=== PATIENT | female | born 1990 | race Caucasian/White ===

== ENCOUNTER 2019-05-18 05:34 | Emergency (ER) | payer SELFPAY ==
--- NOTE | 2019-05-18 05:48 | ED ---
Abdominal Pain/Female - HPI Summary HPI Summary: 29-year-old female with a significant past medical history of a miscarriage in the past presents to emergency department today complaining of having heavy vaginal bleeding which began around midnight last night. Patient also reports having a cramping sensation intermittently which began with spotting yesterday afternoon. She is currently not complaining of any pain and states the vaginal bleeding is dark red. She denies alcohol, smoking, recreational drug use. She denies recent trauma, fever, shortness of breath, lightheadedness, chest pain, rash. Patient does not take any anticoagulants. - History of Current Complaint Chief Complaint: EDOBProblems Stated Complaint: BLEEDING PER PT Hx Obtained From: Patient ?: Yes Onset/Duration: Gradual Onset, Lasting Hours Timing: Constant Severity Initially: Mild Severity Currently: Moderate Pain Intensity: 0 Pain Scale Used: 0-10 Numeric Location: Suprapubic Radiates: No Character: Cramping Associated Signs and Symptoms: Positive: Vaginal Bleeding. Negative: Diaphoresis, Fever, Cough, Chest Pain, Back Pain, Blood in Stool, Urinary Symptoms, Vaginal Discharge, Nausea, Vomiting Simlar Episode/Dx as:: hx of miscarriage Allergies/Adverse Reactions: Allergies Allergy/AdvReac Type Severity Reaction Status Date / Time No Known Allergies Allergy Verified 05/18/19 05:41 PMH/Surg Hx/FS Hx/Imm Hx History: Reports: Other Problems/Disorders - history of miscarriage 2 Infectious Disease History: No Infectious Disease History: Denies: Traveled Outside the [place] in Last 30 Days Review of Systems Constitutional: Negative Eyes: Negative ENT: Negative Cardiovascular: Negative Respiratory: Negative Gastrointestinal: Negative Positive: see HPI Musculoskeletal: Negative Skin: Negative Neurological: Negative Psychological: Normal All Other Systems Reviewed And Are Negative: Yes Physical Exam Triage Information Reviewed: Yes Vital Signs On Initial Exam: Initial Vitals Temp Pulse Resp BP Pulse Ox 98.6 F 88 15 112/77 100 05/18/19 05:38 05/18/19 05:38 05/18/19 05:38 05/18/19 05:38 05/18/19 05:38 Vital Signs Reviewed: Yes Appearance: Positive: Well-Appearing, No Pain Distress, Well-Nourished Skin: Positive: Warm, Skin Color Reflects Adequate Perfusion Eyes: Positive: EOMI, NORA ENT: Positive: Hearing grossly normal Respiratory/Lung Sounds: Positive: Clear to Auscultation, Breath Sounds Present Cardiovascular: Positive: RRR, S1, S2 Abdomen Description: Positive: Soft, Other: - Mild tenderness with palpation of the suprapubic region. No heart sounds could be auscultated with a stethoscope. There is an increase in fundal size consistent with recent . Bowel Sounds: Positive: Present Pelvic Exam: Positive: External Exam Normal, No Cerv. Motion Tender, Active Bleeding, Blood. Negative: Cervicitis, Lesions, Mass, Ulcers Musculoskeletal: Positive: Normal, Strength/ROM Intact Neurological: Positive: Sensory/Motor Intact, Normal Gait, Speech Normal Psychiatric: Positive: Normal AVPU Assessment: Alert Procedures - Sedation Patient Received Moderate/Deep Sedation with Procedure: No Diagnostics - Vital Signs Vital Signs Temp Pulse Resp BP Pulse Ox 05/18/19 05:38 98.6 F 88 15 112/77 100 - Laboratory Result Diagrams: 05/18/19 05:58 05/18/19 05:58 Lab Statement: Any lab studies that have been ordered have been reviewed, and results considered in the medical decision making process. Abdominal Pain Fem Course/Dx - Course Course Of Treatment: Patient was evaluated in the emergency department for possible miscarriage. Patient is 11.5 weeks . The patient was seen and examined. Her vital signs are stable and she is afebrile and hemodynamically stable. Laboratory studies were drawn which showed No evidence of leukocytosis. H&H is stable at 13.7/39.there are no significant electrolyte abnormalities noted. Urinalysis is negative for UTI however there is blood present which is consistent with patient complaint. Type and screen was done which revealed O+ blood type and RhoGAM was deemed unnecessary for this patient. Pelvic exam was done and chaperoned by Horace Daley [facility]. Inspection of the external genitalia showed no lesions however there was blood noted in the perianal area, medial thighs. Speculum exam revealed copious amount of blood in the vaginal canal with possible products of conception. Appeared to be mild cervical dilation. Patient tolerated exam well with no pain. Blood clot was sent to the lab for pathology report as per recommendation from SUBSTITUTE TEACHER, Dr. Hansen. Dr. Hansen was consulted at 0901 and agreed patient symptoms are consistent with A complete . She stated the patient needs a [facility] follow-up in one week. Patient is stable to go home and follow-up as an outpatient. - Diagnoses Differential Diagnosis: Positive: Ectopic , Ovarian Cyst, , Other - Provider Diagnoses: Complete - Provider Notifications Discussed Care Of Patient With: Kate Hansen - patient is stable to follow up as an outpatient with her [employer] in one week. Time Discussed With Above Provider: 09:01 Discharge ED - Sign-Out/Discharge Documenting (check all that apply): Patient Departure - Discharge Plan Condition: Stable Disposition: HOME Patient Education Materials: Miscarriage (ED) Referrals: No Primary Care Phys,NOPCP [Primary Care Provider] - Kate Hansen MD [Medical Doctor] - 7 Days Additional Instructions: You were seen in the emergency department and diagnosed with a complete . You're medically well enough to follow up with your rn clinical coordinator within one week for further evaluation and management of your symptoms. Until then please expect mild vaginal bleeding as this miscarriage resolves. Please return to the emergency department if you develop any new or worsening symptoms including a fever over 101, bleeding more than 1 pad an hour. Please refrain from intercourse and practice pelvic rest and do not insert anything into her vagina including tampons for 4 weeks to allow the cervix to relax. - Billing Disposition and Condition Condition: STABLE Disposition: Home
[2019-05-18 06:08] LABS: ABS Eosinophils 0.2 10^3/ul (0-0.6); ABS Lymphocytes 0.9 10^3/ul (1.0-4.8); ABS Monocytes 0.6 10^3/ul (0-0.8); ABS Neutrophils 8.4 10^3/ul (1.5-7.7); Eosinophil % 1.5 %; Hematocrit 39 % (35-47); Hemoglobin 13.7 g/dL (12.0-16.0); Lymphocyte % 9.3 %; Mean Corpuscular HGB Conc 36 g/dL (31-36); Mean Corpuscular Hemoglobin 30 pg (27-31); Mean Corpuscular Volume 85 fL (80-97); Mean Platelet Volume 7.5 fL (7.4-10.4); Platelet Count 186 10^3/uL (150-450); Red Blood Count 4.54 10^6 /uL (3.70-4.87); Red Cell Distribution Width 14 % (10-15); White Blood Count 10.1 10^3/uL (3.5-10.8)
[2019-05-18 06:17] LABS: Activated Partial Thrombo Time 36.1 seconds (26.0-38.0); INR 1.07 (0.82-1.09)
[2019-05-18 06:26] LABS: Albumin 4.6 g/dL (3.2-5.2); Albumin/Globulin Ratio 1.6 (1-3); BUN/Creatinine Ratio 16.1 (8-20); Calcium 9.4 mg/dL (8.6-10.3); EGFR African American 153.8 (>60); EGFR Non-African American 127.1 (>60); Globulin 2.9 g/dL (2-4); Potassium 3.8 mmol/L (3.5-5.0); Total Bilirubin 0.7 mg/dL (0.2-1.0); Total Protein 7.5 g/dL (6.4-8.9)
[2019-05-18 09:39] VITALS: BP 115/78
== END 2019-05-18 09:37 | disposition home or self-care (01) ==
LOC: ED 05:34
DX: O03.9 Complete or unspecified spontaneous abortion without complication (principal)
CPT/HCPCS: 36415; 76817; 80053; 83605; 84702; 85025; 85610; 85730; 86850; 86900; 86901; 88305; 99282